=== PATIENT | female | born 1975 | race African-American/Black ===

== ENCOUNTER 2018-04-04 09:01 | Emergency (ER) | payer MEDICAID ==
[~2018-04-04] VITALS: Ht 154.9 cm; Wt 46.0 kg
[2018-04-04 14:12] LABS: CLARITY URINE CLEAR (CLEAR); COLOR URINE DARK YELLOW (YELLOW); KETONES URINE TRACE (NEGATIVE); LEUKOCYTE ESTERASE URINE NEGATIVE (NEGATIVE); NITRITE URINE NEGATIVE (NEGATIVE); OCCULT BLOOD URINE TRACE (NEGATIVE); PH URINE 5.5 (4.5-8.0); PROTEIN URINE NEGATIVE (NEGATIVE); SPECIFIC GRAVITY URINE 1.033 (1.005-1.030); UROBILINOGEN URINE 0.2 E.U./dL (0.2-1.0)
[2018-04-04 14:40] VITALS: BP 119/74
== END 2018-04-04 14:45 | disposition home or self-care (01) ==
LOC: ER 09:55
DX: N76.0 Acute vaginitis (principal); F12.10 Cannabis abuse, uncomplicated; Z98.890 Other specified postprocedural states
CPT/HCPCS: 81003; 81025; 99283

== ENCOUNTER 2018-05-18 21:29 | Emergency (ER) | payer MEDICAID ==
[~2018-05-18] VITALS: Ht 154.9 cm; Wt 48.0 kg
[2018-05-18] MEDS ORDERED: BACITRACIN ZINC OINT UDPKT TOP ONE (22:45)
[2018-05-19 01:05] VITALS: BP 105/65
== END 2018-05-19 01:10 | disposition home or self-care (01) ==
LOC: ER 21:29
DX: S00.93XA Contusion of unspecified part of head, initial encounter (principal); Y04.2XXA Assault by strike against or bumped into by another person, initial encounter; Y93.9 Activity, unspecified; Y92.9 Unspecified place or not applicable
CPT/HCPCS: 81025; 99283; Z7610

== ENCOUNTER 2018-06-07 17:13 | Emergency (ER) | payer MEDICAID ==
[~2018-06-07] VITALS: Ht 154.9 cm; Wt 47.0 kg
[2018-06-07 20:15] VITALS: BP 102/57
== END 2018-06-07 20:25 | disposition home or self-care (01) ==
LOC: ER 17:38
DX: H61.22 Impacted cerumen, left ear (principal); H72.11 Attic perforation of tympanic membrane, right ear; F12.10 Cannabis abuse, uncomplicated
CPT/HCPCS: 99281

== ENCOUNTER 2019-03-21 08:37 | Emergency (ER) | payer MEDICAID ==
[~2019-03-21] VITALS: Ht 154.9 cm; Wt 48.0 kg
[2019-03-21] MEDS ORDERED: NITROFURANTOIN 100MG M/M CAPSULE PO ONE (11:15)
[2019-03-21] MEDS ORDERED: PHENAZOPYRIDINE HCL 100MG TABLET PO ONE (11:15)
[2019-03-21 11:26] VITALS: BP 113/72
[2019-03-21 11:47] LABS: KETONES URINE NEGATIVE (NEGATIVE); LEUKOCYTE ESTERASE URINE NEGATIVE (NEGATIVE); NITRITE URINE NEGATIVE (NEGATIVE); OCCULT BLOOD URINE 2+ (NEGATIVE); PH URINE 6.5 (4.5-8.0); PROTEIN URINE NEGATIVE (NEGATIVE); SPECIFIC GRAVITY URINE 1.014 (1.005-1.030); UROBILINOGEN URINE 0.2 E.U./dL (0.2-1.0)
[2019-03-21 11:49] LABS: CLARITY URINE CLEAR (CLEAR)
[2019-03-21 12:06] LABS: COLOR URINE YELLOW (YELLOW)
== END 2019-03-21 11:32 | disposition home or self-care (01) ==
LOC: ER 08:37
DX: N39.0 Urinary tract infection, site not specified (principal); F12.10 Cannabis abuse, uncomplicated; Z98.890 Other specified postprocedural states
CPT/HCPCS: 81025; 99283

== ENCOUNTER 2019-05-10 16:23 | Emergency (ER) | payer MEDICAID ==
[~2019-05-10] VITALS: Ht 165.1 cm; Wt 94.0 kg
[2019-05-10] MEDS ORDERED: ACETAMINOPHEN WITH CODEINE 300/30MG TABLET PO ONE (20:45)
[2019-05-10 21:14] LABS: CHLORIDE 106 mEq/L (98-107)
[2019-05-10 21:33] LABS: BASOPHILS % 0.4 % (0.0-2.0); EOSINOPHILS % 3.9 % (0.0-5.0); HEMATOCRIT. 38.5 % (36.0-48.0); HEMOGLOBIN. 13.5 g/dL (12.0-16.0); MEAN CORPUSCULAR HEMOGLOBIN 31.9 pg (28.0-32.0); MEAN CORPUSCULAR VOLUME 90.7 fL (81.0-99.0); MEAN PLATELET VOLUME 8.2 fl (7.4-10.4); MONOCYTES % 7.3 % (2.0-8.0); NEUTROPHILS % 53.4 % (40.0-76.0); PLATELET 249 x1000/uL (130-400); RED BLOOD CELL COUNT 4.24 mill/uL (4.2-5.4); RED CELL DISTRIBUTION WIDTH 13.3 % (11.6-14.6)
[2019-05-10 21:40] LABS: CLARITY URINE CLEAR (CLEAR); COLOR URINE AMBER (YELLOW); KETONES URINE TRACE (NEGATIVE); LEUKOCYTE ESTERASE URINE NEGATIVE (NEGATIVE); NITRITE URINE NEGATIVE (NEGATIVE); OCCULT BLOOD URINE TRACE (NEGATIVE); PROTEIN URINE TRACE (NEGATIVE); SPECIFIC GRAVITY URINE 1.038 (1.005-1.030); UROBILINOGEN URINE 0.2 E.U./dL (0.2-1.0)
[2019-05-10 22:53] LABS: HCG SCREEN NEGATIVE
[2019-05-10] MEDS ORDERED: FLUCONAZOLE 100MG TABLET PO ONE ×2 (23:15)
[2019-05-10 23:41] VITALS: BP 103/70
[2019-05-13 04:19] LABS: CHLAMYDIA TRACHOMATIS NAA Negative (Negative); NEISSERIA GONORRHOEAE NAA Negative (Negative)
== END 2019-05-10 23:43 | disposition home or self-care (01) ==
LOC: ER 18:40
DX: B37.3 Candidiasis of vulva and vagina (principal); R10.30 Lower abdominal pain, unspecified; F12.10 Cannabis abuse, uncomplicated; Z98.890 Other specified postprocedural states
CPT/HCPCS: 36415; 76830; 76856; 80053; 81003; 83690; 84703; 85025; 87210; 87491; 87591; 99284; Z7610

== ENCOUNTER 2019-08-23 11:29 | Emergency (ER) | payer MEDICAID ==
[~2019-08-23] VITALS: Ht 154.9 cm; Wt 47.0 kg
[2019-08-23] MEDS ORDERED: CEFTRIAXONE SODIUM 250 MG/VIAL IM ONE (13:00)
[2019-08-23] MEDS ORDERED: AZITHROMYCIN 500 MG TABLET PO ONE (13:00)
[2019-08-23 13:26] LABS: CLARITY URINE CLEAR (CLEAR); COLOR URINE YELLOW (YELLOW); KETONES URINE NEGATIVE (NEGATIVE); LEUKOCYTE ESTERASE URINE NEGATIVE (NEGATIVE); NITRITE URINE NEGATIVE (NEGATIVE); OCCULT BLOOD URINE 2+ (NEGATIVE); PH URINE 6.5 (4.5-8.0); PROTEIN URINE NEGATIVE (NEGATIVE); SPECIFIC GRAVITY URINE 1.029 (1.005-1.030)
[2019-08-23 15:40] VITALS: BP 109/81
[2019-08-26 08:07] LABS: CHLAMYDIA TRACHOMATIS NAA Negative (Negative); NEISSERIA GONORRHOEAE NAA Negative (Negative)
== END 2019-08-23 15:44 | disposition home or self-care (01) ==
LOC: ER 11:29
DX: N76.0 Acute vaginitis (principal); F12.10 Cannabis abuse, uncomplicated; Z98.890 Other specified postprocedural states
CPT/HCPCS: 81003; 81025; 87210; 87491; 87591; 96372; 99283; J0696

== ENCOUNTER 2020-01-01 19:33 | Emergency (ER) | payer MEDICAID ==
[~2020-01-01] VITALS: Ht 154.9 cm; Wt 52.0 kg
[2020-01-01] MEDS ORDERED: IBUPROFEN 600MG TABLET PO STA (22:53)
[2020-01-01 23:24] LABS: CLARITY URINE CLEAR (CLEAR); COLOR URINE YELLOW (YELLOW); KETONES URINE TRACE (NEGATIVE); LEUKOCYTE ESTERASE URINE NEGATIVE (NEGATIVE); NITRITE URINE NEGATIVE (NEGATIVE); OCCULT BLOOD URINE TRACE (NEGATIVE); PROTEIN URINE NEGATIVE (NEGATIVE); SPECIFIC GRAVITY URINE 1.034 (1.005-1.030)
[2020-01-01 23:54] VITALS: BP 108/63
== END 2020-01-01 23:56 | disposition home or self-care (01) ==
LOC: ER 19:33
DX: J06.9 Acute upper respiratory infection, unspecified (principal); F12.10 Cannabis abuse, uncomplicated; Z98.890 Other specified postprocedural states
CPT/HCPCS: 81003; 81025; 99283

== ENCOUNTER 2020-02-15 16:20 | Emergency (ER) | payer MEDICAID ==
[~2020-02-15] VITALS: Ht 154.9 cm; Wt 47.5 kg
[2020-02-15 18:36] LABS: CLARITY URINE CLEAR (CLEAR); COLOR URINE YELLOW (YELLOW); KETONES URINE NEGATIVE (NEGATIVE); LEUKOCYTE ESTERASE URINE NEGATIVE (NEGATIVE); NITRITE URINE NEGATIVE (NEGATIVE); OCCULT BLOOD URINE 2+ (NEGATIVE); PROTEIN URINE NEGATIVE (NEGATIVE); SPECIFIC GRAVITY URINE 1.028 (1.005-1.030)
[2020-02-15 19:09] VITALS: BP 110/68
== END 2020-02-15 19:09 | disposition home or self-care (01) ==
LOC: ER 16:20
DX: N89.8 Other specified noninflammatory disorders of vagina (principal); F12.10 Cannabis abuse, uncomplicated; Z98.890 Other specified postprocedural states
CPT/HCPCS: 81003; 81025; 99283

== ENCOUNTER 2020-05-28 16:25 | Emergency (ER) | payer MEDICAID ==
[~2020-05-28] VITALS: Ht 162.6 cm; Wt 59.0 kg
[2020-05-28 16:39] VITALS: BP 99/62
== END 2020-05-28 19:12 | disposition left against medical advice (07) ==
LOC: ER 16:25
DX: R68.89 Other general symptoms and signs (principal); Z53.21 Procedure and treatment not carried out due to patient leaving prior to being seen by health care provider

== ENCOUNTER 2021-01-06 09:13 | Inpatient (IN) | payer MEDICAID ==
[~2021-01-06] VITALS: Ht 154.9 cm; Wt 46.7 kg
[2021-01-06] MEDS ORDERED: TETRACAINE 0.5% OPHTH DROPS 4ML RIGHTEYE ONE (09:30)
[2021-01-06] MEDS ORDERED: IBUPROFEN 400MG TABLET PO ONE (10:15)
[2021-01-06] MEDS ORDERED: FLUORESCEIN SODIUM 1MG/STRIP RIGHTEYE ONE (10:30)
[2021-01-06] MEDS ORDERED: SODIUM CHLORIDE 0.9% 1,000 ML IV ONE (11:15)
[2021-01-06] MEDS ORDERED: CLINDAMYCIN 600 MG in DEXTROSE 5% WATER 50 ML IV ONE (12:15)
[2021-01-06] MEDS ORDERED: CLINDAMYCIN 600MG PREMIX 50 ML IV SCH (12:30)
[2021-01-06 12:50] LABS: BASOPHILS % 0.4 % (0.0-2.0); EOSINOPHILS % 1.1 % (0.0-5.0); HEMATOCRIT. 38.4 % (36.0-48.0); HEMOGLOBIN. 13.1 g/dL (12.0-16.0); LYMPHOCYTES % 25.6 % (20.0-50.0); MEAN CORPUSCULAR HEMOGLOBIN 30.8 pg (28.0-32.0); MEAN CORPUSCULAR VOLUME 90.3 fL (81.0-99.0); MONOCYTES % 5.9 % (2.0-8.0); RED BLOOD CELL COUNT 4.25 mill/uL (4.2-5.4); RED CELL DISTRIBUTION WIDTH 12.9 % (11.6-14.6)
[2021-01-06 12:54] LABS: CLARITY URINE CLEAR (CLEAR); COLOR URINE YELLOW (YELLOW); KETONES URINE 2+ (NEGATIVE); LEUKOCYTE ESTERASE URINE NEGATIVE (NEGATIVE); NITRITE URINE NEGATIVE (NEGATIVE); OCCULT BLOOD URINE NEGATIVE (NEGATIVE); PH URINE 7.5 (4.5-8.0); PROTEIN URINE NEGATIVE (NEGATIVE); SPECIFIC GRAVITY URINE 1.017 (1.005-1.030); UROBILINOGEN URINE 0.2 E.U./dL (0.2-1.0)
[2021-01-06 14:01] LABS: CHLORIDE 110 mEq/L (98-107)
[2021-01-06 14:03] LABS: INR 1.1; PROTHROMBIN TIME 11.4 sec (9.6-11.0)
[2021-01-06] MEDS ORDERED: IBUPROFEN 600MG TABLET PO PRN (15:00)
[2021-01-06] MEDS ORDERED: ONDANSETRON 4MG/5ML UDC PO NR (15:00)
[2021-01-06] MEDS ORDERED: ACETAMINOPHEN 325MG TABLET PO PRN (15:00)
[2021-01-06] MEDS ORDERED: DEXAMETHASONE 4MG/ML 1ML VIAL IV NR (19:00)
[2021-01-06 21:45] VITALS: BP 121/80
[2021-01-06] MEDS: CIPROFLOXACIN 0.3% OPHTH SOLN 2.5ML RIGHTEYE SCH (23:28)
[2021-01-07] MEDS ORDERED: LIDOCAINE HCL/PF 2% 20 MG/ML 10ML VIAL ONE (01:00)
[2021-01-07] MEDS ORDERED: BALANCED SALT IRRIG SOLN 15ML ONE (01:00)
[2021-01-07] MEDS ORDERED: LIDOCAINE HCL 2%/EPINEPHRINE 1:100,000 20 ML VIAL INFIL ONE (01:00)
[2021-01-07] MEDS ORDERED: BUPIVACAINE HCL/PF 0.75% (7.5MG/ML) 10ML ONE (01:00)
[2021-01-07] MEDS: PREDNISOLONE ACETATE 1% OPHTH DROPS 5ML RIGHTEYE SCH ×3 (01:33→12:29)
[2021-01-07 08:00] VITALS: BP 125/78
[2021-01-07] MEDS: CIPROFLOXACIN 0.3% OPHTH SOLN 2.5ML RIGHTEYE SCH ×2 (09:00→12:29)
[2021-01-07 12:00] VITALS: BP 143/85
[2021-01-07 12:58] LABS: UCG SCREEN NEGATIVE
[2021-01-07] MEDS ORDERED: FENTANYL CITRATE/PF 50MCG/ML 2ML VIAL ONE (13:07)
[2021-01-07] MEDS ORDERED: PROPOFOL 200MG/20ML VIAL IV ONE ×2 (13:07→13:48)
[2021-01-07] MEDS ORDERED: MIDAZOLAM HCL 2 MG/2 ML VIAL ONE (13:08)
[2021-01-07] MEDS ORDERED: DEXAMETHASONE 4MG/ML 1ML VIAL ONE (13:10)
[2021-01-07] MEDS ORDERED: ONDANSETRON HCL 4MG/2ML INJ ONE (13:11)
[2021-01-07] MEDS ORDERED: SODIUM CHLORIDE 0.9% 10ML VIAL ONE (13:11)
[2021-01-07] MEDS ORDERED: KETOROLAC 30MG/ML VIAL ONE (13:11)
[2021-01-07] MEDS ORDERED: CEFAZOLIN SODIUM 1000MG/VIAL ONE (13:11)
[2021-01-07] MEDS ORDERED: METOCLOPRAMIDE HCL 10MG/2ML VIAL ONE (13:52)
[2021-01-07] MEDS ORDERED: ONDANSETRON HCL 4MG/2ML INJ IV PRN (14:45)
[2021-01-07] MEDS ORDERED: HYDROMORPHONE HCL/PF 2MG/ML CPJ IV PRN (14:45)
[2021-01-07] MEDS ORDERED: FENTANYL CITRATE/PF 50MCG/ML 2ML VIAL IV PRN (14:45)
[2021-01-07] MEDS ORDERED: MEPERIDINE HCL/PF 25MG/ML CPJ IV PRN (14:45)
[2021-01-07 16:00] VITALS: BP 116/81
[2021-01-07 16:51] VITALS: BP 116/81
== END 2021-01-07 17:50 | disposition home or self-care (01) | DRG 73 ==
LOC: ER 09:13 → 6EST 13:54 → EDBEDREQ 14:02 → EDBEDREQTM 14:02 → ENRESERV 20:45
PROVIDERS: ADMIT Internal Medicine; ATTEND Internal Medicine
PROC: 0NSP04Z Reposition Right Orbit with Internal Fixation Device, Open Approach (ICD-10-PCS; principal; 2021-01-07)
DX: S02.31XA Fracture of orbital floor, right side, initial encounter for closed fracture (principal); Z20.822 Contact with and (suspected) exposure to COVID-19; Y04.0XXA Assault by unarmed brawl or fight, initial encounter; E87.8 Other disorders of electrolyte and fluid balance, not elsewhere classified; Z98.891 History of uterine scar from previous surgery; Y93.89 Activity, other specified; Y92.89 Other specified places as the place of occurrence of the external cause; Y99.8 Other external cause status
CPT/HCPCS: 36415; 70486; 71045; 80053; 81003; 81025; 85025; 87426; 93005; 99291; J0690; J1100; J1885; J2250; J2405; J2704; J2765; J3010; J3490; J7030; J7060

== ENCOUNTER 2022-01-27 15:27 | Emergency (ER) | payer MEDICAID, OTHER ==
[~2022-01-27] VITALS: Ht 154.9 cm; Wt 47.0 kg
[2022-01-27] MEDS ORDERED: ONDANSETRON 4MG ODT PO ONE (16:00)
[2022-01-27] MEDS ORDERED: HYDROCODONE/ACETAMINOPHEN 5/325MG TABLET PO ONE (16:00)
[2022-01-27] MEDS ORDERED: DIAZEPAM 5 MG TABLET PO ONE (16:00)
[2022-01-27] MEDS ORDERED: IBUP-2028 MT (16:33)
[2022-01-27] MEDS ORDERED: METH-773 MT (16:33)
[2022-01-27 17:52] VITALS: BP 147/86
== END 2022-01-27 17:53 | disposition home or self-care (01) ==
LOC: ER 15:27
DX: M54.50 Low back pain, unspecified (principal); I10 Essential (primary) hypertension; Z98.890 Other specified postprocedural states
CPT/HCPCS: 72100; 81025; 99284; Q0162

== ENCOUNTER 2022-02-16 06:29 | Emergency (ER) | payer MEDICAID ==
[~2022-02-16] VITALS: Ht 154.9 cm; Wt 48.0 kg
[~2022-02-16 06:29] MED LIST: IBUP-2028 MT; METH-773 MT
[2022-02-16 06:35] VITALS: BP 120/68
[2022-02-16] MEDS ORDERED: OXYC-100 MT (07:09)
[2022-02-16] MEDS ORDERED: IBUP-2028 PO (07:09)
[2022-02-16] MEDS ORDERED: IBUPROFEN 800MG TABLET PO ONE (07:15)
== END 2022-02-16 07:21 | disposition home or self-care (01) ==
LOC: ER 06:29
DX: M54.50 Low back pain, unspecified (principal); Z98.890 Other specified postprocedural states; X50.9XXA Other and unspecified overexertion or strenuous movements or postures, initial encounter; Y93.89 Activity, other specified; Y92.89 Other specified places as the place of occurrence of the external cause; Y99.8 Other external cause status
CPT/HCPCS: 99282

== ENCOUNTER 2022-06-20 17:20 | Emergency (ER) | payer MEDICAID, OTHER ==
[~2022-06-20] VITALS: Ht 154.9 cm; Wt 48.0 kg
[~2022-06-20 17:20] MED LIST changes: +IBUP-2028 PO; +OXYC-100 MT
[2022-06-20 17:31] VITALS: BP 131/69
== END 2022-06-20 21:39 | disposition left against medical advice (07) ==
LOC: ER 17:20
DX: Z53.21 Procedure and treatment not carried out due to patient leaving prior to being seen by health care provider (principal)

== ENCOUNTER 2022-10-12 12:26 | Emergency (ER) | payer MEDICAID ==
[~2022-10-12] VITALS: Ht 165.1 cm; Wt 62.0 kg
[2022-10-12 12:39] VITALS: BP 107/65
[2022-10-12] MEDS ORDERED: LIDO1ADH16 TP (16:30)
[2022-10-12] MEDS ORDERED: IBUP-2028 MT (16:31)
[2022-10-12] MEDS ORDERED: CYCLOBENZAPRINE 10MG TABLET PO ONE (16:45)
== END 2022-10-12 16:50 | disposition home or self-care (01) ==
LOC: ER 12:26
DX: S39.012A Strain of muscle, fascia and tendon of lower back, initial encounter (principal); Z98.890 Other specified postprocedural states; X58.XXXA Exposure to other specified factors, initial encounter; Y93.89 Activity, other specified; Y92.018 Other place in single-family (private) house as the place of occurrence of the external cause
CPT/HCPCS: 81025; 99283

== ENCOUNTER 2023-02-24 12:33 | Emergency (ER) | payer OTHER ==
[~2023-02-24] VITALS: Ht 154.9 cm; Wt 48.0 kg
[~2023-02-24 12:33] MED LIST changes: +LIDO1ADH16 TP
[2023-02-24 12:51] VITALS: BP 101/67
[2023-02-24 13:17] LABS: BASOPHILS % 0.2 % (0.0-2.0); EOSINOPHILS % 1.6 % (0.0-5.0); HEMATOCRIT. 35.1 % (36.0-48.0); HEMOGLOBIN. 12.1 g/dL (12.0-16.0); LYMPHOCYTES % 21.5 % (20.0-50.0); MEAN CORPUSCULAR HEMOGLOBIN 30.7 pg (28.0-32.0); MEAN CORPUSCULAR VOLUME 89.4 fL (81.0-99.0); MEAN PLATELET VOLUME 8.4 fl (7.4-10.4); MONOCYTES % 5.8 % (2.0-8.0); NEUTROPHILS % 70.9 % (40.0-76.0); PLATELET 227 x1000/uL (130-400); RED BLOOD CELL COUNT 3.93 mill/uL (4.2-5.4); RED CELL DISTRIBUTION WIDTH 13.3 % (11.6-14.6)
[2023-02-24 13:25] LABS: CHLORIDE 108 mEq/L (98-107)
[2023-02-24 13:56] LABS: CLARITY URINE CLEAR (CLEAR); COLOR URINE YELLOW (YELLOW); KETONES URINE TRACE (NEGATIVE); LEUKOCYTE ESTERASE URINE NEGATIVE (NEGATIVE); NITRITE URINE NEGATIVE (NEGATIVE); OCCULT BLOOD URINE 2+ (NEGATIVE); PH URINE 7.5 (4.5-8.0); PROTEIN URINE TRACE (NEGATIVE); SPECIFIC GRAVITY URINE 1.028 (1.005-1.030); UROBILINOGEN URINE 0.2 E.U./dL (0.2-1.0)
[2023-02-24 13:59] LABS: UCG SCREEN NEGATIVE
[2023-02-24] MEDS ORDERED: AZITHROMYCIN 500 MG TABLET PO ONE (17:30)
[2023-02-24] MEDS ORDERED: CEFTRIAXONE SODIUM 500 MG/VIAL IM ONE (17:30)
== END 2023-02-24 17:52 | disposition home or self-care (01) ==
LOC: ER 12:40
DX: R30.0 Dysuria (principal); E86.0 Dehydration; A64 Unspecified sexually transmitted disease; Z98.890 Other specified postprocedural states
CPT/HCPCS: 36415; 80053; 81003; 81025; 83690; 85025; 87086; 96372; 99283; J0696; Z7610

== ENCOUNTER 2023-08-16 11:25 | Emergency (ER) | payer MEDICAID, OTHER ==
[~2023-08-16] VITALS: Ht 154.9 cm; Wt 48.0 kg
[2023-08-16 11:44] VITALS: BP 134/81; PULSE 90; RESP 19; TEMP 97.9; O2SAT 99
[2023-08-16 13:19] LABS: CLARITY URINE CLEAR (CLEAR); COLOR URINE YELLOW (YELLOW); GLUCOSE URINE NEGATIVE (NEGATIVE); KETONES URINE TRACE (NEGATIVE); LEUKOCYTE ESTERASE URINE NEGATIVE (NEGATIVE); NITRITE URINE NEGATIVE (NEGATIVE); OCCULT BLOOD URINE NEGATIVE (NEGATIVE); PH URINE 6.5 (4.5-8.0); PROTEIN URINE NEGATIVE (NEGATIVE); SPECIFIC GRAVITY URINE 1.025 (1.005-1.030)
[2023-08-16] MEDS ORDERED: CEFTRIAXONE SODIUM 1 G/VIAL IM ONE (13:30)
[2023-08-16] MEDS ORDERED: DOXY150T5 MT (15:34)
[2023-08-16] MEDS ORDERED: ACET-2708 MT (15:45)
[2023-08-16] MEDS ORDERED: CEFTRIAXONE SODIUM 1 G/VIAL IM NR (16:00)
[2023-08-18 13:06] LABS: CHLAMYDIA TRACHOMATIS NAA Negative (Negative); NEISSERIA GONORRHOEAE NAA Negative (Negative)
== END 2023-08-16 16:37 | disposition home or self-care (01) ==
LOC: ER 11:25
DX: Z11.3 Encounter for screening for infections with a predominantly sexual mode of transmission (principal); R10.9 Unspecified abdominal pain; Z98.890 Other specified postprocedural states
CPT/HCPCS: 81003; 81025; 87210; 87491; 87591; 99283; 99284; J0696

== ENCOUNTER 2023-12-21 16:48 | Emergency (ER) | payer MEDICAID ==
[~2023-12-21] VITALS: Ht 160 cm; Wt 57.0 kg
[~2023-12-21 16:48] MED LIST changes: +ACET-2708 MT; +DOXY150T5 MT
[2023-12-21 16:54] VITALS: BP 135/101; PULSE 104; RESP 16; TEMP 98.5; O2SAT 97
[2023-12-21 18:33] LABS: CLARITY URINE CLEAR (CLEAR); COLOR URINE YELLOW (YELLOW); GLUCOSE URINE NEGATIVE (NEGATIVE); KETONES URINE NEGATIVE (NEGATIVE); LEUKOCYTE ESTERASE URINE NEGATIVE (NEGATIVE); NITRITE URINE NEGATIVE (NEGATIVE); OCCULT BLOOD URINE TRACE (NEGATIVE); PROTEIN URINE NEGATIVE (NEGATIVE); SPECIFIC GRAVITY URINE 1.017 (1.005-1.030); UROBILINOGEN URINE 0.2 E.U./dL (0.2-1.0)
[2023-12-21 19:25] LABS: BACTERIA URINE TRACE; RBC URINE 0-2 /hpf (0-2); SQUAMOUS EPITHELIAL CELL URINE RARE /lpf (RARE/1+); WBC URINE NONE SEEN /hpf (0-2)
== END 2023-12-21 20:49 | disposition home or self-care (01) ==
LOC: ER 16:48
DX: R35.0 Frequency of micturition (principal); Z98.890 Other specified postprocedural states
CPT/HCPCS: 81003; 81025; 99283

== ENCOUNTER 2024-06-25 14:08 | Emergency (ER) | payer MEDICAID ==
[~2024-06-25] VITALS: Ht 154.9 cm; Wt 61.0 kg
[2024-06-25 14:11] VITALS: O2SAT 100
[2024-06-25 15:47] VITALS: BP 120/60; PULSE 80; RESP 15; TEMP 98.3
[2024-06-25] MEDS: ACETAMINOPHEN 325MG TABLET PO ONE (15:47)
== END 2024-06-25 17:02 | disposition home or self-care (01) ==
LOC: ER 14:08
DX: M79.644 Pain in right finger(s) (principal); Z98.890 Other specified postprocedural states; Z79.899 Other long term (current) drug therapy
CPT/HCPCS: 73140; 99283